=== PATIENT | male | born 1965 | race Caucasian/White ===

== ENCOUNTER 2023-02-20 08:06 | Day surgery (SDC) | payer OTHER ==
[2023-02-09 12:47] VITALS: BMI 36.2
[2023-02-20] MEDS ORDERED: ACETAMINOPHEN 325 MG TABLET (FP) PO PRN (08:10)
[2023-02-20] MEDS ORDERED: oxyCODONE HCL 5 MG TABLET PO PRN (08:10)
[2023-02-20] MEDS ORDERED: ONDANSETRON 4 MG/2 ML VIAL IVPUSH PRN (08:10)
[2023-02-20] MEDS ORDERED: LACTATED RINGERS SOLUTION 1,000 ML IV SCH (08:15)
[2023-02-20] MEDS ORDERED: EPINEPHrine 1:1,000 1,000 MCG/ML ML ONE (08:42)
[2023-02-20] MEDS ORDERED: BUPIVACAINE HCL/EPINEPHRINE/PF 30 ML VIAL IJ ONE (08:42)
[2023-02-20] MEDS ORDERED: BUPIVACAINE HCL/PF 0.5% (5 MG/ML) 30 ML VIAL IJ ONE (08:57)
[2023-02-20] MEDS ORDERED: ACETAMINOPHEN INJECTION 100 ML IVPB ONE (08:58)
[2023-02-20] MEDS ORDERED: MIDAZOLAM HCL 2 MG/2 ML SINGLE DOSE VIAL ONE (08:58)
[2023-02-20] MEDS ORDERED: DEXAMETHASONE SOD PHOSPHATE/PF 10 MG/ML SDV ONE (08:58)
[2023-02-20] MEDS ORDERED: PROPOFOL 60 ML ONE (09:19)
[2023-02-20] MEDS ORDERED: ceFAZolin SODIUM 1 GM VIAL ONE ×2 (09:22)
[2023-02-20] MEDS ORDERED: ONDANSETRON 4 MG/2 ML VIAL ONE ×2 (09:39)
[2023-02-20] MEDS ORDERED: KETOROLAC TROMETHAMINE 30 MG/1 ML VIAL ONE (09:39)
[2023-02-20] MEDS ORDERED: PROPOFOL 20 ML ONE ×5 (09:49→11:50)
[2023-02-20] MEDS ORDERED: KETAMINE HCL 200 MG/20 ML VIAL ONE (10:28)
[2023-02-20 13:41] VITALS: TEMP 97
[2023-02-20 13:45] VITALS: BP 144/90; PULSE 77; RESP 18
== END 2023-02-20 13:45 | disposition home or self-care (01) ==
LOC: FASU 08:06
PROVIDERS: ATTEND Orthopaedic Surgery
PROC: 0RNJ4ZZ Release Right Shoulder Joint, Percutaneous Endoscopic Approach (ICD-10-PCS; principal; 2023-02-20 09:42)
PROC: 0LS34ZZ Reposition Right Upper Arm Tendon, Percutaneous Endoscopic Approach (ICD-10-PCS; 2023-02-20 09:42)
DX: S46.011D Strain of muscle(s) and tendon(s) of the rotator cuff of right shoulder, subsequent encounter (principal); M75.21 Bicipital tendinitis, right shoulder; M75.51 Bursitis of right shoulder; M65.811 Other synovitis and tenosynovitis, right shoulder; S43.431D Superior glenoid labrum lesion of right shoulder, subsequent encounter; M75.01 Adhesive capsulitis of right shoulder; X58.XXXD Exposure to other specified factors, subsequent encounter
CPT/HCPCS: 88304-TC; 94760; C1713

== ENCOUNTER 2024-06-07 04:24 | Day surgery (SDC) | payer OTHER ==
[2024-06-01 09:23] VITALS: BMI 38.4
[2024-06-07 11:49] VITALS: TEMP 98.2
[2024-06-07 12:26] VITALS: RESP 18
[2024-06-07 12:27] VITALS: BP 158/75; PULSE 73
== END 2024-06-07 12:40 | disposition home or self-care (01) ==
LOC: JASU-ENDO 04:24
PROVIDERS: ATTEND Internal Medicine Gastroenterology
PROC: 3E0H8GC Introduction of Other Therapeutic Substance into Lower GI, Via Natural or Artificial Opening Endoscopic (ICD-10-PCS; 2024-06-07)
PROC: 0DBN8ZX Excision of Sigmoid Colon, Via Natural or Artificial Opening Endoscopic, Diagnostic (ICD-10-PCS; principal; 2024-06-07 12:00)
DX: Z12.11 Encounter for screening for malignant neoplasm of colon (principal); D12.5 Benign neoplasm of sigmoid colon; Z86.0100 Personal history of colon polyps, unspecified; R19.5 Other fecal abnormalities
CPT/HCPCS: 88305-TC